=== PATIENT | female | born 1945 | race Caucasian/White ===

== ENCOUNTER 2016-10-18 13:50 | Emergency (ER) | payer MEDICARE, BC ==
[2016-10-18] MEDS ORDERED: Ketorolac INJ* 30 MG/ML 1 ML VIAL IV ONE (14:40)
--- NOTE | 2016-10-18 15:03 | RAD ---
HISTORY: Trauma, head pain COMPARISONS: None TECHNIQUE: Multiple contiguous axial CT scans were obtained of the head without intravenous contrast. FINDINGS: HEMORRHAGE/INFARCT: There is no hemorrhage or acute infarct. MASSES/SHIFT: There is no mass or shift. EXTRA-AXIAL SPACES: There are no extra-axial fluid collections. SULCI AND VENTRICLES: The sulci and ventricles are normal in size and position for the patient's stated age. CEREBRUM: There are no focal parenchymal abnormalities. BRAINSTEM: There are no focal parenchymal abnormalities. CEREBELLUM: There are no focal parenchymal abnormalities. VESSELS: The vessels are grossly normal. PARANASAL SINUSES: The paranasal sinuses are clear. ORBITS: The orbits are unremarkable. BONES AND SOFT TISSUE: There is soft tissue swelling of the left parietal scalp OTHER: None IMPRESSION: NO ACUTE INTRACRANIAL PATHOLOGY.
--- NOTE | 2016-10-18 15:10 | RAD ---
HISTORY: jaw pain, trauma COMPARISONS: None TECHNIQUE: Multiple contiguous axial CT scans were obtained of the face without intravenous contrast, with coronal and sagittal multiplanar reformations. FINDINGS: BONES: There is no displaced fracture or dislocation. The orbital rim is intact. The zygomatic arch is intact. The pterygoid plates are intact. Degenerative changes are noted of the spine. 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 The optic nerves are symmetric. The extraocular musculature is normal. There is no post septal or intraconal inflammatory change. There is no retrobulbar hematoma. PARANASAL SINUSES: The paranasal sinuses are clear. BRAIN AND SOFT TISSUE: Unremarkable. OTHER: None. IMPRESSION: DEGENERATIVE CHANGES. NO FACIAL FRACTURE.
[2016-10-18 15:25] LABS: Hematocrit 40 % (35-47); Hemoglobin 13.2 g/dl (12.0-16.0); Mean Corpuscular HGB Conc 33 g/dl (31-36); Mean Corpuscular Hemoglobin 30 pg (27-31); Mean Corpuscular Volume 89 fL (80-97); Mean Platelet Volume 7 um3 (7.4-10.4); Red Blood Count 4.49 10^6/ul (4.0-5.4); Red Cell Distribution Width 14 % (10.5-15); White Blood Count 11.9 10^3/ul (3.5-10.8)
--- NOTE | 2016-10-18 15:36 | RAD ---
HISTORY: Trauma, left shoulder pain COMPARISONS: None VIEWS: 3, Frontal internal rotation, external rotation, and outlet views of the left shoulder FINDINGS: BONE DENSITY: There is diffuse osteopenia. BONES: There is a Hill-Sachs deformity of the left humeral head JOINTS: There is no arthropathy. ALIGNMENT: There is no dislocation. SOFT TISSUES: Unremarkable. OTHER FINDINGS: None. IMPRESSION: OSTEOPENIA. 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
--- NOTE | 2016-10-18 15:39 | RAD ---
INDICATION: Right hip injury COMPARISON: June 15, 2015 TECHNIQUE: An AP view of the pelvis and AP views of the hip in neutral and abducted position were obtained FINDINGS: Bones: There are no acute bony findings. Joint spaces: The hips articulate normally. The joint spaces are preserved. SI joints/symphysis: The SI joints and symphysis are intact. Other: None IMPRESSION: NEGATIVE EXAMINATION
[2016-10-18 15:42] LABS: Albumin 3.8 g/dL (3.2-5.2); BUN/Creatinine Ratio 24.4 (8-20); EGFR African American 83.4 (>60); EGFR Non-African American 64.9 (>60); Globulin 2.8 g/dL (2-4); Total Bilirubin 0.6 mg/dL (0.2-1.0); Total Protein 6.6 g/dL (6.4-8.9)
[2016-10-18 16:28] LABS: Potassium 4.6 mmol/L (3.5-5.0)
[2016-10-18] MEDS ORDERED: Tetan/Diph/Pertus SYR(Tdap)* 0.5 ML SYR(BOOSTRIX) use SYR IM ONE (16:46)
[2016-10-18] MEDS ORDERED: LORazepam TAB(*) 1 MG PO ONE (16:58)
[2016-10-18 17:21] VITALS: BP 104/60
--- NOTE | 2016-10-18 18:08 | ED ---
Evy Wilcox Erika, scribed for Abad Hidalgo MD on 10/18/16 at 1519 . Adult Trauma - HPI Summary HPI Summary: Patient is a 71-year-old female presenting to the ED with a CC of fall [employer]. Patient reports that she was walking at [place] along a slippery pipe, so decided to step down to the ground. As she was trying to step to the ground, she fell from a standing position onto the ground, and then rolled further down the hill - total fall was 4-6 feet per . She denies LOC, and states she was helped up slowly by her . She then walked part of the way back, stopped and put her head between her knees because she felt lightheaded, and then slowly got up again and walked 1 mile back to the car. Patient now complains of a painful laceration to the posterior head, pain and abrasions to the shoulders, right flank and groin pain, a painful laceration to the right flank, and lower jaw pain. She denies any neck pain so C-collar is removed. She denies clavicle and abdominal pain. Patient does not take a blood thinner. - History of Current Complaint Stated Complaint: 8FT FALL / HEAD LAC Time Seen by Provider: 10/18/16 14:02 Hx Obtained From: Patient, Family/Outboard Technician - Mechanism of Injury: Fall Ambulatory at the Scene: Yes Loss of Consciousness: no loss of consciousness Onset/Duration: Started Hours Ago, Traumatic, Still Present Onset of Pain: Post Accident Current Severity: Moderate Aggravating Factor(s): Movement, Palpation Associated Signs & Symptoms: Positive: Other: - lacerations and abrasions. Negative: Loss of Consciousness - Allergy/Home Medications Allergies/Adverse Reactions: Allergies Allergy/AdvReac Type Severity Reaction Status Date / Time Codeine AdvReac Unknown Unknown Verified 10/18/16 14:42 Reaction Details Home Medications: Home Medications Aspirin EC Low Dose* [Ecotrin EC Low Dose 81 MG*] 81 mg PO DAILY 10/18/16 [ History Confirmed 10/18/16] Calcium-Magnesium W/ Vitamin D [Calcium 600/Magnesium 300] 1 cap PO DAILY [History Confirmed 10/18/16] Escitalopram (NF) [Lexapro (NF)] 20 mg PO BEDTIME 10/18/16 [History Confirmed ] Multivitamins/Minerals TAB* [Theragran/minerals TAB*] 1 tab PO DAILY 10/18/16 [ History Confirmed 10/18/16] [place]-3 Fatty Acids (Nf) [Fish Oil (NF)] 1,000 mg PO DAILY 10/18/16 [History Confirmed 10/18/16] buPROPion TAB* [Wellbutrin TAB*] 75 mg PO QAM 10/18/16 [History Confirmed ] PMH/Surg Hx/FS Hx/Imm Hx Musculoskeletal History: Reports: Hx Orthopedic Injury - (right) rotator cuff repair x2, (left) shoulder surgery Psychiatric History: Reports: Hx Depression - Cancer History Hx Chemotherapy: No Hx Radiation Therapy: No - Surgical History Surgery Procedure, Year, and Place: 1993 & 1995 - (right) rotator cuff repair. 10/2010 (left) shoulder surgery Infectious Disease History: Denies: Traveled Outside the [place] in Last 30 Days - Family History Known Family History: Positive: Other - Tachycardia - Social History Occupation: Retired Lives: With Family Review of Systems ENT: Other - lower jaw pain Negative: Abdominal Pain Musculoskeletal: Other - Pain at shoulders, right flank, right groin Skin: Other - lacerations and abrasions - see HPI Neurological: Other - lightheadedness Negative: Syncope All Other Systems Reviewed And Are Negative: Yes Physical Exam Triage Information Reviewed: Yes Vital Signs On Initial Exam: Temp Pulse Resp BP Pulse Ox 97.4 F 66 16 105/68 99 10/18/16 14:44 10/18/16 14:44 10/18/16 14:44 10/18/16 14:44 10/18/16 14:44 Vital Signs Reviewed: Yes Appearance: Positive: Well-Appearing, No Pain Distress Skin: Positive: Warm, Skin Color Reflects Adequate Perfusion, Dry, Other - Superficial abrasions on bilateral posterior shoulders. 1.5 cm laceration to the right flank Head/Face: Positive: Other - Laceration to the occiput Eyes: Positive: Normal ENT: Positive: Normal ENT inspection Dental: Positive: Other - No click or pop when she moves her jaw, non-tender jaw Neck: Positive: Supple, Nontender Respiratory/Lung Sounds: Positive: Clear to Auscultation, Breath Sounds Present Cardiovascular: Positive: RRR Abdomen Description: Positive: Nontender, Soft Bowel Sounds: Positive: Present Musculoskeletal: Positive: Other - Tender over the right iliac crest. Pelvis stable Neurological: Positive: Normal Psychiatric: Positive: Affect/Mood Appropriate Diagnostics - Vital Signs Vital Signs Temp Pulse Resp BP Pulse Ox 10/18/16 17:19 98 F 64 16 104/60 10/18/16 17:04 16 10/18/16 16:15 64 102/55 96 10/18/16 16:00 63 9 99 10/18/16 15:58 64 12 104/64 99 10/18/16 15:34 8 10/18/16 15:15 66 13 114/61 100 10/18/16 15:06 65 111/59 99 10/18/16 14:45 105/58 10/18/16 14:44 97.4 F 66 16 105/68 99 10/18/16 14:30 34 16 103/60 74 10/18/16 14:29 52 18 117/68 84 10/18/16 14:03 62 100 10/18/16 14:01 117/70 - Laboratory Lab Results: Lab Results 10/18/16 10/18/16 Range/Units 15:15 15:15 WBC 11.9 H (3.5-10.8) 10^3/ul RBC 4.49 (4.0-5.4) 10^6/ul Hgb 13.2 (12.0-16.0) g/dl Hct 40 (35-47) % MCV 89 (80-97) fL MCH 30 (27-31) pg MCHC 33 (31-36) g/dl RDW 14 (10.5-15) % Plt Count 222 (150-450) 10^3/ul MPV 7 L (7.4-10.4) um3 Neut % (Auto) 78.7 (38-83) % Lymph % (Auto) 15.4 L (25-47) % [place] % (Auto) 5.2 (1-9) % Eos % (Auto) 0.4 (0-6) % Baso % (Auto) 0.3 (0-2) % Absolute Neuts (auto) 9.4 H (1.5-7.7) 10^3/ul Absolute Lymphs (auto) 1.8 (1.0-4.8) 10^3/ul Absolute Monos (auto) 0.6 (0-0.8) 10^3/ul Absolute Eos (auto) 0 (0-0.6) 10^3/ul Absolute Basos (auto) 0 (0-0.2) 10^3/ul Absolute Nucleated RBC 0 10^3/ul Nucleated RBC % 0 Sodium 131 L (133-145) mmol/L Potassium 4.6 (3.5-5.0) mmol/L Chloride 99 L (101-111) mmol/L Carbon Dioxide 26 (22-32) mmol/L Anion Gap 6 (2-11) mmol/L BUN 21 (6-24) mg/dL Creatinine 0.86 (0.51-0.95) mg/dL Est GFR ( Amer) 83.4 (>60) Est GFR (Non-Af Amer) 64.9 (>60) BUN/Creatinine Ratio 24.4 H (8-20) Glucose 84 (70-100) mg/dL Calcium 9.0 (8.6-10.3) mg/dL Total Bilirubin 0.60 (0.2-1.0) mg/dL AST 29 (13-39) U/L ALT 15 (7-52) U/L Alkaline Phosphatase 62 (34-104) U/L Total Creatine Kinase 163 (10-223) U/L Total Protein 6.6 (6.4-8.9) g/dL Albumin 3.8 (3.2-5.2) g/dL Globulin 2.8 (2-4) g/dL Albumin/Globulin Ratio 1.4 (1-3) Result Diagrams: 10/18/16 15:15 10/18/16 15:15 Lab Statement: Any lab studies that have been ordered have been reviewed, and results considered in the medical decision making process. - Radiology L Shoulder XR Radiology Interpretation Completed By: Radiologist - IMPRESSION: OSTEOPENIA. 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 NO FACIAL FRACTURE. Brain CT CT Interpretation Completed By: Radiologist - IMPRESSION: NO ACUTE INTRACRANIAL PATHOLOGY. Re-Evaluation - Re-Evaluation First Eval Re-Evaluation Time: 16:19 Comment: Discussed imaging and labs with patient Second Eval Re-Evaluation Time: 16:46 Comment: Fully answered patient's additional questions. Adult Trauma Course/Dx - Course Course Of Treatment: Ms. Cope's imaging studies were all normal. I think she has some TMJ injury and likely spasm on the left and I spoke with her and her about that and recommended ibuprofen, a soft diet and I will prescribe ativan as a muscle relaxer to use especially at night. She has a very small laceration on the occiput with a hematoma and I offered to put a staple in although it is questionable whether it is needed and she declined. - Diagnoses Provider Diagnoses: Hematoma of occipital surface of head, Occipital scalp laceration, TMJ contusion, Multiple abrasions, Multiple contusions Discharge - Discharge Plan Condition: Stable Disposition: HOME Prescriptions: LORazepam TAB(*) [Ativan TAB(*)] 1 mg PO Q6H PRN #20 tab MDD 4 PRN Reason: Pain Patient Education Materials: Abrasion (ED), Contusion in Adults (ED) Referrals: Elmo Bowling MD [Primary Care Provider] - Additional Instructions: Take ibuprofen as needed for the pain The documentation as recorded by the Evy davis Erika accurately reflects the service I personally performed and the decisions made by me, Abad Hidalgo MD.
== END 2016-10-18 17:19 | disposition home or self-care (01) ==
LOC: ED 13:50
DX: S01.01XA Laceration without foreign body of scalp, initial encounter (principal); S00.03XA Contusion of scalp, initial encounter; S00.83XA Contusion of other part of head, initial encounter; T14.8 Other injury of unspecified body region; F32.9 Major depressive disorder, single episode, unspecified; W19.XXXA Unspecified fall, initial encounter; Y92.9 Unspecified place or not applicable; Z88.5 Allergy status to narcotic agent
CPT/HCPCS: 36415; 70450; 70486; 80053; 82550; 85025; 90715; 96372; 96374; 99284; A9270-GY; J1885